=== PATIENT | female | born 1960 | race Caucasian/White ===

== ENCOUNTER 2017-09-21 09:00 | Inpatient (IN) | payer MEDICARE, MEDICAID ==
[~2017-09-21] VITALS: Ht 152.4 cm; Wt 39.0 kg
--- NOTE | 2017-09-21 08:51 | Emergency Room Report ---
History of Present Illness General Source: Family Member, EMS Present Illness HPI Patient's 56-year-old female presented after increased seizure activity. Patient had prior history of traumatic brain injury. She reportedly does not have prior history of seizures. Patient had brief seizure approximately 30 seconds. The patient noted to have no prior seizure medications. She reportedly had been sent in from [facility]. Per EMS, she is currently at her baseline mental status. Allergies: Coded Allergies: No Known Allergies (Unverified , 09/21/17) Patient History Past Medical History: see triage record Reviewed Nursing Documentation: PMH: Agreed, PSxH: Agreed Physical Exam General Appearance: no apparent distress, Chronically Ill Eyes: bilateral eye PERRL ENT: uvula midline Neck: limited range of motion Respiratory: lungs clear, normal breath sounds Cardiovascular #1: no edema Gastrointestinal: non tender, soft Musculoskeletal: decreased range of motion, other Neurologic: other - incomprehensible sounds, moves all extremities, responsive to verbal stimuli Psychiatric: anxious Skin: normal color Medical Decision Making Diagnostic Impression: Primary Impression: Epileptic seizure, generalized ER Course Patient presented for a seizure. Differential diagnosis included stroke, cysticercosis, electrolyte abnormality, mass lesion, or cranial hemorrhage.Because of complexity of patient's case laboratory testing and imaging studies were ordered.The patient was loaded with IV Keppra A CT imaging of the head read by radiology showed paraventricular deep white matter changes as well as a left maxillary sinus polyps. There was ventricular megaly which was likely related to volume loss however this may represent hydrocephalus. Patient was discussed with Dr. Michel for inpatient management. Per discussion with family member patient is not to be intubated or have CPR. Labs Test 09/21/17 09:00 09/21/17 10:47 White Blood Count 11.3 K/UL (4.8-10.8) Red Blood Count 4.75 M/UL (4.20-5.40) Hemoglobin 14.5 G/DL (12.0-16.0) Hematocrit 45.3 % (37.0-47.0) Mean Corpuscular Volume 95 FL (80-99) Mean Corpuscular Hemoglobin 30.4 PG (27.0-31.0) Mean Corpuscular Hemoglobin Concent 32.0 G/DL (32.0-36.0) Red Cell Distribution Width 12.4 % (11.6-14.8) Platelet Count 378 K/UL (150-450) Mean Platelet Volume 6.2 FL (6.5-10.1) Neutrophils (%) (Auto) 63.6 % (45.0-75.0) Lymphocytes (%) (Auto) 30.2 % (20.0-45.0) Monocytes (%) (Auto) 3.9 % (1.0-10.0) Eosinophils (%) (Auto) 0.9 % (0.0-3.0) Basophils (%) (Auto) 1.3 % (0.0-2.0) Sodium Level 145 MMOL/L (136-145) Potassium Level 4.9 MMOL/L (3.5-5.1) Chloride Level 106 MMOL/L (98-107) Carbon Dioxide Level 27 MMOL/L (21-32) Anion Gap 12 mmol/L (5-15) Blood Urea Nitrogen 17 mg/dL (7-18) Creatinine 1.1 MG/DL (0.55-1.30) Estimat Glomerular Filtration Rate 51.8 mL/min (>60) Glucose Level 177 MG/DL (74-106) Calcium Level 9.6 MG/DL (8.5-10.1) Total Bilirubin 0.4 MG/DL (0.2-1.0) Aspartate Amino Transf (AST/SGOT) 21 U/L (15-37) Alanine Aminotransferase (ALT/SGPT) 28 U/L (12-78) Alkaline Phosphatase 50 U/L (46-116) Total Protein 7.7 G/DL (6.4-8.2) Albumin 4.1 G/DL (3.4-5.0) Globulin 3.6 g/dL Albumin/Globulin Ratio 1.1 (1.0-2.7) Urine Color Pale yellow Urine Appearance Clear Urine pH 5 (4.5-8.0) Urine Specific [place] 1.025 (1.005-1.035) Urine Protein Negative (NEGATIVE) Urine Glucose (UA) 1+ (NEGATIVE) Urine Ketones Negative (NEGATIVE) Urine Occult Blood 3+ (NEGATIVE) Urine Nitrite Negative (NEGATIVE) Urine Bilirubin Negative (NEGATIVE) Urine Urobilinogen Normal MG/DL (0.0-1.0) Urine Leukocyte Esterase Negative (NEGATIVE) Urine RBC 5-10 /HPF (0 - 2) Urine WBC 0-2 /HPF (0 - 2) Urine Squamous Epithelial Cells Few /LPF (NONE/OCC) Urine Amorphous Sediment Few /LPF (NONE) Urine Bacteria Few /HPF (NONE) Status: unchanged Disposition: ADMITTED INPATIENT Condition: David Mendoza Sep 21, 2017 08:50
[2017-09-21 09:00] VITALS: BP 171/93
[2017-09-21 09:30] LABS: BASOPHILS % (AUTO) 1.3 % (0.0-2.0); EOSINOPHILS % (AUTO) 0.9 % (0.0-3.0); HEMATOCRIT 45.3 % (37.0-47.0); HEMOGLOBIN 14.5 G/DL (12.0-16.0); LYMPHOCYTES % (AUTO) 30.2 % (20.0-45.0); MEAN CORPUSCULAR VOLUME 95 FL (80-99); MONOCYTES % (AUTO) 3.9 % (1.0-10.0); NEUTROPHILS % (AUTO) 63.6 % (45.0-75.0); PLATELET COUNT 378 K/UL (150-450); RED BLOOD COUNT 4.75 M/UL (4.20-5.40); RED CELL DISTRIBUTION WIDTH 12.4 % (11.6-14.8); WHITE BLOOD COUNT 11.3 K/UL (4.8-10.8)
[2017-09-21] MEDS ORDERED: LORazepam Inj 2mg/ml 1ml IV ONE (09:30)
[2017-09-21] MEDS ORDERED: MILK OF MA2400 MG/10 ORAL (09:37)
[2017-09-21] MEDS ORDERED: METOPROLOL TAR100 M1 ORAL (09:37)
[2017-09-21] MEDS ORDERED: DONEPEZIL HCL10 M2 ORAL (09:37)
[2017-09-21] MEDS ORDERED: AMBIEN10 M1 ORAL (09:37)
[2017-09-21] MEDS ORDERED: NAMENDA10 MG ORAL (09:37)
[2017-09-21] MEDS ORDERED: COLACE100 MG ORAL (09:37)
[2017-09-21] MEDS ORDERED: ATIVAN1 MG ORAL (09:37)
[2017-09-21] MEDS ORDERED: TRAMADOL HCL50 MG ORAL (09:38)
[2017-09-21] MEDS ORDERED: MULTIVITAMINS1 EAC2 ORAL (09:38)
[2017-09-21 09:40] LABS: ANION GAP 12 mmol/L (5-15); BLOOD UREA NITROGEN 17 mg/dL (7-18); CALCIUM 9.6 MG/DL (8.5-10.1); CARBON DIOXIDE 27 MMOL/L (21-32); CHLORIDE 106 MMOL/L (98-107); CREATININE 1.1 MG/DL (0.55-1.30); POTASSIUM 4.9 MMOL/L (3.5-5.1); SODIUM 145 MMOL/L (136-145)
[2017-09-21] MEDS ORDERED: TYLENOL EXTRA500 MG ORAL (09:40)
[2017-09-21] MEDS ORDERED: ACETAMINOPHEN325 M1 ORAL (09:40)
[2017-09-21 09:50] LABS: ALANINE AMINOTRANSFERASE 28 U/L (12-78); ALBUMIN 4.1 G/DL (3.4-5.0); ALBUMIN/GLOBULIN RATIO 1.1 (1.0-2.7); ALKALINE PHOSPHATASE 50 U/L (46-116); ASPARTATE AMINO TRANSFERASE 21 U/L (15-37); BILIRUBIN,TOTAL 0.4 MG/DL (0.2-1.0)
--- NOTE | 2017-09-21 10:48 | Diagnostic Imaging Report ---
Indications: Altered mental status, seizures Technique: Spiral acquisitions obtained through the brain. Angled axial and coronal 5 x 5 mm slices were reconstructed. Total dose length product 2055.22 mGycm. CTDI vol(s) 70.38,70.38 mGy. Dose reduction achieved using automated exposure control Comparison: None. Findings: There is enlargement of the ventricles and extra-axial CSF spaces, the former somewhat out of proportion to the latter and both out of proportion to patient's age. Minimal periventricular deep white matter low-attenuation, predominantly in the left parietal region. No acute intracranial hemorrhage or edema. No mass effect nor midline shift. Otherwise normal gordon-white differentiation. There are left maxillary sinus polyps versus mucous retention cysts. The mastoids are clear. The calvarium is intact. Surgical clips are seen in the left posterior neck. Impression: Negative for acute intracranial bleed or mass effect Generalized central and cortical cerebral volume loss, out of proportion to patient's age. Correlate with clinical history. Note that the ventriculomegaly is somewhat disproportionate to the degree of sulcal dilatation. This is probably due to disproportionate central volume loss, but hydrocephalus is also a possibility Left maxillary sinus polyps versus mucous retention cyst Evidence of prior neck surgery. Paraffiner image suggests the presence of tubing in the lower neck as well. Correlate with surgical history Consider contrast MRI for more sensitive evaluation of reported clinical history of new onset seizures The CT scanner at [facility] is accredited by the [employer] and the scans are performed using protocols designed to limit radiation exposure to as low as reasonably achievable to attain images of sufficient resolution adequate for diagnostic evaluation.
[2017-09-21 10:59] LABS: APPEARANCE,URINE CLEAR; BILIRUBIN, URINE NEGATIVE (NEGATIVE); COLOR,URINE PALE YELLOW; GLUCOSE, URINE (UA) 1+ (NEGATIVE); KETONES,URINE NEGATIVE (NEGATIVE); LEUKOCYTE ESTERASE ,URINE NEGATIVE (NEGATIVE); NITRITE,URINE NEGATIVE (NEGATIVE); PH,URINE 5 (4.5-8.0); PROTEIN,URINE NEGATIVE (NEGATIVE); UROBILINOGEN,URINE NORMAL MG/DL (0.0-1.0)
[2017-09-21 11:00] VITALS: BP 98/58
[2017-09-21 13:00] VITALS: BP 100/69
[2017-09-21 15:00] VITALS: BP 146/71
[2017-09-21 16:00] VITALS: BP 129/77
--- NOTE | 2017-09-21 16:31 | History & Physical ---
History and Physical History & Physicial 56 year old female with baseline confusion presents with new onset seizure and tachycardia. Patient noted to be more altered than baseline. Patient now admitted for admission and evaluation. Patient would like DNR per d/w ER MD. Patient without trauma or falls. no fevers or chills noted. Patient without any prodrome. events acute in nature PMH dementia hypertension MEDS/ALLERGIES noted PHYSICAL WDWN NAD clear breath sounds bilaterally without rhonchi or wheeze [id number] without MRG NABS nontender no HSM no CCE nonfocal confused Laboratory Tests Test 09/21/17 09:00 09/21/17 10:47 White Blood Count 11.3 K/UL (4.8-10.8) H Red Blood Count 4.75 M/UL (4.20-5.40) Hemoglobin 14.5 G/DL (12.0-16.0) Hematocrit 45.3 % (37.0-47.0) Mean Corpuscular Volume 95 FL (80-99) Mean Corpuscular Hemoglobin 30.4 PG (27.0-31.0) Mean Corpuscular Hemoglobin Concent 32.0 G/DL (32.0-36.0) Red Cell Distribution Width 12.4 % (11.6-14.8) Platelet Count 378 K/UL (150-450) Mean Platelet Volume 6.2 FL (6.5-10.1) L Neutrophils (%) (Auto) 63.6 % (45.0-75.0) Lymphocytes (%) (Auto) 30.2 % (20.0-45.0) Monocytes (%) (Auto) 3.9 % (1.0-10.0) Eosinophils (%) (Auto) 0.9 % (0.0-3.0) Basophils (%) (Auto) 1.3 % (0.0-2.0) Sodium Level 145 MMOL/L (136-145) Potassium Level 4.9 MMOL/L (3.5-5.1) Chloride Level 106 MMOL/L (98-107) Carbon Dioxide Level 27 MMOL/L (21-32) Anion Gap 12 mmol/L (5-15) Blood Urea Nitrogen 17 mg/dL (7-18) Creatinine 1.1 MG/DL (0.55-1.30) Estimat Glomerular Filtration Rate 51.8 mL/min (>60) Glucose Level 177 MG/DL (74-106) H Calcium Level 9.6 MG/DL (8.5-10.1) Total Bilirubin 0.4 MG/DL (0.2-1.0) Aspartate Amino Transf (AST/SGOT) 21 U/L (15-37) Alanine Aminotransferase (ALT/SGPT) 28 U/L (12-78) Alkaline Phosphatase 50 U/L (46-116) Total Protein 7.7 G/DL (6.4-8.2) Albumin 4.1 G/DL (3.4-5.0) Globulin 3.6 g/dL Albumin/Globulin Ratio 1.1 (1.0-2.7) Urine Color Pale yellow Urine Appearance Clear Urine pH 5 (4.5-8.0) Urine Specific [place] 1.025 (1.005-1.035) Urine Protein Negative (NEGATIVE) Urine Glucose (UA) 1+ (NEGATIVE) H Urine Ketones Negative (NEGATIVE) Urine Occult Blood 3+ (NEGATIVE) H Urine Nitrite Negative (NEGATIVE) Urine Bilirubin Negative (NEGATIVE) Urine Urobilinogen Normal MG/DL (0.0-1.0) Urine Leukocyte Esterase Negative (NEGATIVE) Urine RBC 5-10 /HPF (0 - 2) H Urine WBC 0-2 /HPF (0 - 2) Urine Squamous Epithelial Cells Few /LPF (NONE/OCC) Urine Amorphous Sediment Few /LPF (NONE) H Urine Bacteria Few /HPF (NONE) IMPRESSION seizure, new onset acute on chronic encephalopathy hypertension mild sinus tachycardia PLAN start [facility] MRI EEG neuro evaluation resume sNF meds monitor clinically and dc when stable NANCY ESPANA Sep 21, 2017 16:31
[2017-09-21] MEDS ORDERED: LORazepam 1mg tab ORAL PRN (17:00)
[2017-09-21] MEDS ORDERED: Zolpidem 5mg tab ORAL PRN (17:00)
[2017-09-21] MEDS ORDERED: LORazepam Inj 2mg/ml 1ml IVP PRN (17:00)
[2017-09-21] MEDS ORDERED: traMADol 50mg tab ORAL PRN (17:00)
[2017-09-21] MEDS ORDERED: Milk of Magnesia 30ml Ud ORAL PRN (17:00)
--- NOTE | 2017-09-21 18:06 | Neurology Progress Note ---
Objective Physical Exam Last Vital Signs Date Time Temp Pulse Resp B/P (MAP) Pulse Ox O2 Delivery O2 Flow Rate FiO2 09/21/17 15:00 69 13 146/71 100 Room Air 100 09/21/17 09:00 97.1 Laboratory Tests Test 09/21/17 09:00 09/21/17 10:47 White Blood Count 11.3 K/UL (4.8-10.8) H Red Blood Count 4.75 M/UL (4.20-5.40) Hemoglobin 14.5 G/DL (12.0-16.0) Hematocrit 45.3 % (37.0-47.0) Mean Corpuscular Volume 95 FL (80-99) Mean Corpuscular Hemoglobin 30.4 PG (27.0-31.0) Mean Corpuscular Hemoglobin Concent 32.0 G/DL (32.0-36.0) Red Cell Distribution Width 12.4 % (11.6-14.8) Platelet Count 378 K/UL (150-450) Mean Platelet Volume 6.2 FL (6.5-10.1) L Neutrophils (%) (Auto) 63.6 % (45.0-75.0) Lymphocytes (%) (Auto) 30.2 % (20.0-45.0) Monocytes (%) (Auto) 3.9 % (1.0-10.0) Eosinophils (%) (Auto) 0.9 % (0.0-3.0) Basophils (%) (Auto) 1.3 % (0.0-2.0) Sodium Level 145 MMOL/L (136-145) Potassium Level 4.9 MMOL/L (3.5-5.1) Chloride Level 106 MMOL/L (98-107) Carbon Dioxide Level 27 MMOL/L (21-32) Anion Gap 12 mmol/L (5-15) Blood Urea Nitrogen 17 mg/dL (7-18) Creatinine 1.1 MG/DL (0.55-1.30) Estimat Glomerular Filtration Rate 51.8 mL/min (>60) Glucose Level 177 MG/DL (74-106) H Calcium Level 9.6 MG/DL (8.5-10.1) Total Bilirubin 0.4 MG/DL (0.2-1.0) Aspartate Amino Transf (AST/SGOT) 21 U/L (15-37) Alanine Aminotransferase (ALT/SGPT) 28 U/L (12-78) Alkaline Phosphatase 50 U/L (46-116) Total Protein 7.7 G/DL (6.4-8.2) Albumin 4.1 G/DL (3.4-5.0) Globulin 3.6 g/dL Albumin/Globulin Ratio 1.1 (1.0-2.7) Urine Color Pale yellow Urine Appearance Clear Urine pH 5 (4.5-8.0) Urine Specific [place] 1.025 (1.005-1.035) Urine Protein Negative (NEGATIVE) Urine Glucose (UA) 1+ (NEGATIVE) H Urine Ketones Negative (NEGATIVE) Urine Occult Blood 3+ (NEGATIVE) H Urine Nitrite Negative (NEGATIVE) Urine Bilirubin Negative (NEGATIVE) Urine Urobilinogen Normal MG/DL (0.0-1.0) Urine Leukocyte Esterase Negative (NEGATIVE) Urine RBC 5-10 /HPF (0 - 2) H Urine WBC 0-2 /HPF (0 - 2) Urine Squamous Epithelial Cells Few /LPF (NONE/OCC) Urine Amorphous Sediment Few /LPF (NONE) H Urine Bacteria Few /HPF (NONE) Impression/Recommendations Problems: (1) Alzheimer's dementia with behavioral disturbance (2) Epileptic seizure, generalized Status: unchanged Recommendations #[id number] JENNY NAVARRETE Sep 21, 2017 18:06
[2017-09-21 20:00] VITALS: BP 156/76
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
[2017-09-21] MEDS ORDERED: Donepezil 10mg tab ORAL SCH (21:00)
[2017-09-21] MEDS: Heparin 5000 units/ml inj SUBQ SCH (21:09)
[2017-09-22] VITALS: BP 126/80
[2017-09-22 04:00] VITALS: BP 155/76
[2017-09-22 07:52] VITALS: BP 117/72
[2017-09-22 08:36] LABS: BASOPHILS % (AUTO) 1.1 % (0.0-2.0); EOSINOPHILS % (AUTO) 0.8 % (0.0-3.0); HEMATOCRIT 37.4 % (37.0-47.0); HEMOGLOBIN 12.3 G/DL (12.0-16.0); LYMPHOCYTES % (AUTO) 21.2 % (20.0-45.0); MEAN CORPUSCULAR VOLUME 95 FL (80-99); MONOCYTES % (AUTO) 4.9 % (1.0-10.0); PLATELET COUNT 262 K/UL (150-450); RED BLOOD COUNT 3.93 M/UL (4.20-5.40); RED CELL DISTRIBUTION WIDTH 12.2 % (11.6-14.8); WHITE BLOOD COUNT 9.6 K/UL (4.8-10.8)
[2017-09-22] MEDS: Docusate 100mg cap ORAL SCH (08:53)
--- NOTE | 2017-09-22 08:54 | General Progress Note ---
Assessment/Plan Assessment/Plan IMPRESSION seizure, new onset acute on chronic encephalopathy hypertension mild sinus tachycardia, improved PLAN [facility]ney and Jojo neuro evaluation- resume sNF meds monitor clinically and dc when stable dc to snf today impression, plan, and exam edited and reviewed in detail care discussed with RN Subjective Allergies: Coded Allergies: No Known Allergies (Unverified , 09/21/17) Subjective care noted and reviewed stable overnight Objective Last 24 Hour Vital Signs Date Time Temp Pulse Resp B/P (MAP) Pulse Ox O2 Delivery O2 Flow Rate FiO2 09/22/17 07:52 98.1 70 18 117/72 98 Room Air 09/22/17 04:00 52 09/22/17 04:00 97.3 59 20 155/76 100 Room Air 09/22/17 00:00 53 09/22/17 00:00 97.7 60 20 126/80 97 Room Air 09/21/17 21:06 74 156/76 09/21/17 20:00 97.0 74 20 156/76 94 Room Air 09/21/17 20:00 61 09/21/17 16:00 59 09/21/17 16:00 97.7 67 18 129/77 100 Room Air 09/21/17 15:00 69 13 146/71 100 Room Air 100 09/21/17 13:00 62 14 100/69 100 Room Air 100 09/21/17 11:00 70 18 98/58 100 Room Air 100 09/21/17 09:00 123 20 Room Air 100 09/21/17 09:00 97.1 123 20 171/93 100 Room Air 100 Intake and Output 09/21/17 09/22/17 18:59 06:59 Intake Total 1000 ml 1213 ml Balance 1000 ml 1213 ml Intake Oral 50 ml IV Total 1000 ml 1163 ml # Voids 1 1 # Bowel Movements 1 Laboratory Tests 09/21/17 09:00: White Blood Count 11.3H, Red Blood Count 4.75, Hemoglobin 14.5, Hematocrit 45.3 , Mean Corpuscular Volume 95, Mean Corpuscular Hemoglobin 30.4, Mean Corpuscular Hemoglobin Concent 32.0, Red Cell Distribution Width 12.4, Platelet Count 378, Mean Platelet Volume 6.2L, Neutrophils (%) (Auto) 63.6, Lymphocytes ( %) (Auto) 30.2, Monocytes (%) (Auto) 3.9, Eosinophils (%) (Auto) 0.9, Basophils (%) (Auto) 1.3, Sodium Level 145, Potassium Level 4.9, Chloride Level 106, Carbon Dioxide Level 27, Anion Gap 12, Blood Urea Nitrogen 17, Creatinine 1.1, Estimat Glomerular Filtration Rate 51.8, Glucose Level 177H, Calcium Level 9.6, Total Bilirubin 0.4, Aspartate Amino Transf (AST/SGOT) 21, Alanine Aminotransferase (ALT/SGPT) 28, Alkaline Phosphatase 50, Total Protein 7.7, Albumin 4.1, Globulin 3.6, Albumin/Globulin Ratio 1.1 09/21/17 10:47: Urine Color Pale yellow, Urine Appearance Clear, Urine pH 5, Urine Specific [place] 1.025, Urine Protein Negative, Urine Glucose (UA) 1+H, Urine Ketones Negative, Urine Occult Blood 3+H, Urine Nitrite Negative, Urine Bilirubin Negative, Urine Urobilinogen Normal, Urine Leukocyte Esterase Negative, Urine RBC 5-10H, Urine WBC 0-2, Urine Squamous Epithelial Cells Few, Urine Amorphous Sediment FewH, Urine Bacteria Few 09/22/17 07:20: White Blood Count 9.6, Red Blood Count 3.93L, Hemoglobin 12.3, Hematocrit 37.4, Mean Corpuscular Volume 95, Mean Corpuscular Hemoglobin 31.3H, Mean Corpuscular Hemoglobin Concent 32.9, Red Cell Distribution Width 12.2, Platelet Count 262, Mean Platelet Volume 7.5, Neutrophils (%) (Auto) 72.0, Lymphocytes (%) (Auto) 21.2, Monocytes (%) (Auto) 4.9, Eosinophils (%) (Auto) 0.8, Basophils (%) (Auto ) 1.1, Sodium Level [Pending], Potassium Level [Pending], Chloride Level [ Pending], Carbon Dioxide Level [Pending], Blood Urea Nitrogen [Pending], Creatinine [Pending], Estimat Glomerular Filtration Rate [Pending], Glucose Level [Pending], Calcium Level [Pending] Height (Feet): 5 Height (Inches): 7.00 Weight (Pounds): 86 Objective WDWN NAD clear breath sounds bilaterally without rhonchi or wheeze [id number] without MRG NABS nontender no HSM no CCE nonfocal contracted NANCY ESPANA Sep 22, 2017 08:54
[2017-09-22] MEDS ORDERED: Memantine 10mg tab ORAL SCH (09:00)
[2017-09-22] MEDS: Heparin 5000 units/ml inj SUBQ SCH ×2 (09:00→20:54)
[2017-09-22 09:40] LABS: ANION GAP 8 mmol/L (5-15); BLOOD UREA NITROGEN 13 mg/dL (7-18); CALCIUM 8.6 MG/DL (8.5-10.1); CARBON DIOXIDE 24 MMOL/L (21-32); CHLORIDE 110 MMOL/L (98-107); CREATININE 0.7 MG/DL (0.55-1.30); POTASSIUM 4.1 MMOL/L (3.5-5.1); SODIUM 142 MMOL/L (136-145)
[2017-09-22 11:46] VITALS: BP 132/73
--- NOTE | 2017-09-22 12:37 | Neurology Progress Note ---
Interim History Interim History ROS Limited/Unobtainable: Yes Complaints: mute Events: fed by family Objective Physical Exam Last Vital Signs Date Time Temp Pulse Resp B/P (MAP) Pulse Ox O2 Delivery O2 Flow Rate FiO2 09/22/17 11:46 98.1 60 18 132/73 99 Room Air 09/21/17 15:00 100 Laboratory Tests Test 09/22/17 07:20 White Blood Count 9.6 K/UL (4.8-10.8) Red Blood Count 3.93 M/UL (4.20-5.40) L Hemoglobin 12.3 G/DL (12.0-16.0) Hematocrit 37.4 % (37.0-47.0) Mean Corpuscular Volume 95 FL (80-99) Mean Corpuscular Hemoglobin 31.3 PG (27.0-31.0) H Mean Corpuscular Hemoglobin Concent 32.9 G/DL (32.0-36.0) Red Cell Distribution Width 12.2 % (11.6-14.8) Platelet Count 262 K/UL (150-450) Mean Platelet Volume 7.5 FL (6.5-10.1) Neutrophils (%) (Auto) 72.0 % (45.0-75.0) Lymphocytes (%) (Auto) 21.2 % (20.0-45.0) Monocytes (%) (Auto) 4.9 % (1.0-10.0) Eosinophils (%) (Auto) 0.8 % (0.0-3.0) Basophils (%) (Auto) 1.1 % (0.0-2.0) Sodium Level 142 MMOL/L (136-145) Potassium Level 4.1 MMOL/L (3.5-5.1) Chloride Level 110 MMOL/L (98-107) H Carbon Dioxide Level 24 MMOL/L (21-32) Anion Gap 8 mmol/L (5-15) Blood Urea Nitrogen 13 mg/dL (7-18) Creatinine 0.7 MG/DL (0.55-1.30) Estimat Glomerular Filtration Rate > 60 mL/min (>60) Glucose Level 102 MG/DL (74-106) Calcium Level 8.6 MG/DL (8.5-10.1) General: well developed, no acute distress, other - cachectic Head: normocophalic, atraumatic Neck: other - rigid Neurologic Exam Mental Status: other - eyes closed , obtunded Speech: other - mute Language: other - poor comprehension Cranial Nerve II: other Cranial Nerves III, IV, : pupils Cranial Nerve V: masseters function normal Cranial Nerve VIII: no nystagmus Cranial Nerve IX: other - gag ok Cranial Nerve XI: trapezii function normal Cranial Nerve XII: no tongue atrophy/fasciculations Motor System: other - diffuse rigidity Sensory: normal position sense, other Deep Tendon Reflexes: 0 bicep (L), 0 bicep (R), 0 tricep (L), 0 tricep (R), 0 brachioradialis (L), 0 brachioradialis (R), 0 knee (L), 0 knee (R), 0 ankle (L) , 0 ankle (R) Reflexes: mute plantar (L), mute plantar (R) Impression/Recommendations Problems: (1) Alzheimer's dementia with behavioral disturbance (2) Epileptic seizure, generalized Status: unchanged Recommendations #[id number] depakote 250mg bid may titrate JENNY NAVARRETE Sep 22, 2017 12:37
[2017-09-22 16:00] VITALS: BP 133/84
[2017-09-22 20:00] VITALS: BP 136/79
[2017-09-23] VITALS: BP 152/76
[2017-09-23 04:00] VITALS: BP 143/92
[2017-09-23 08:00] VITALS: BP 144/71
[2017-09-23] MEDS: Docusate 100mg cap ORAL SCH (08:55)
[2017-09-23] MEDS: Heparin 5000 units/ml inj SUBQ SCH (08:58)
[2017-09-23 12:15] VITALS: BP 143/75
--- NOTE | 2017-09-23 12:20 | General Progress Note ---
Assessment/Plan Assessment/Plan IMPRESSION seizure, new onset acute on chronic encephalopathy hypertension mild sinus tachycardia, improved PLAN Depakote and Kefloydra neuro evaluation- resume sNF meds monitor clinically and dc when stable dc to snf today impression, plan, and exam edited and reviewed in detail care discussed with RN Subjective Allergies: Coded Allergies: No Known Allergies (Unverified , 09/21/17) Subjective care noted and reviewed stable overnight alert Objective Last 24 Hour Vital Signs Date Time Temp Pulse Resp B/P (MAP) Pulse Ox O2 Delivery O2 Flow Rate FiO2 09/23/17 09:00 53 143/92 09/23/17 08:00 97.7 55 18 144/71 97 Room Air 09/23/17 08:00 55 09/23/17 04:00 97.9 53 20 143/92 97 Room Air 09/23/17 04:00 53 09/23/17 00:00 97.7 53 20 152/76 100 Room Air 09/23/17 00:00 48 09/22/17 20:54 64 136/79 09/22/17 20:00 98.0 65 20 136/79 93 Room Air 09/22/17 20:00 64 09/22/17 16:00 97.7 65 18 133/84 93 Room Air 09/22/17 16:00 61 Intake and Output 09/22/17 09/23/17 19:00 07:00 Intake Total 1360 ml 1170 ml Balance 1360 ml 1170 ml Intake Oral 360 ml IV Total 1000 ml 1170 ml # Voids 3 # Bowel Movements 1 Height (Feet): 5 Height (Inches): 7.00 Weight (Pounds): 86 Objective WDWN NAD clear breath sounds bilaterally without rhonchi or wheeze [id number] without MRG NABS nontender no HSM no CCE nonfocal contracted NANCY ESPANA Sep 23, 2017 12:20
[2017-09-23] MEDS ORDERED: DEPAKOTE125 MG PO (13:53)
[2017-09-23] MEDS ORDERED: LOPRESSOR25 M1 ORAL (13:54)
--- NOTE | 2017-09-23 15:45 | Electroencephalogram ---
DATE OF PROCEDURE: 09/22/2017 REFERRING PHYSICIAN: Lenin Michel M.D. READING PHYSICIAN: Soham Gann M.D. PROCEDURE PERFORMED: Electroencephalography. HISTORY: This is a 56-year-old female with a history of progressive neurodegenerative disease presenting with generalized seizure. EEG was requested to assess possible ongoing seizure activities. Currently, the patient placed on Depakote. EEG was done using 18 electrodes placed on scalp to scalp, scalp to ear montages according to 10[employer] System. During recording, the patient described as being obtunded, poorly cooperative. Most of the recording, background consisted of a poorly organized, predominantly low voltage mixture of 3 to 5 cycles per second theta activities bilaterally with appearance of intermittent bifrontal/central polymorphic delta wave transients, short runs of generalized 2 to 3 per second delta activities noted. There were no clinical signs of involuntary movement. There were no paroxysmal electrographic activities. No spike and wave activity. No significant asymmetry from [id number]. IMPRESSION: Markedly abnormal EEG, compatible with severe encephalopathy. COMMENT: Above abnormality indicating the global cerebral dysfunction, absence of paroxysmal event does not rule out seizure disorder. Soham Gann M.D. DR: JEN JOB#: [id number] CC:
--- NOTE | 2017-09-26 08:28 | Discharge Summary ---
Discharge Summary Hospital Course Date of Admission Sep 21, 2017 at 10:00 Date of Discharge Sep 23, 2017 at 15:40 Admitting Diagnosis NEW ONSET SEIZURE HPI Cher Noel is a 56 year old female who was admitted on Sep 21, 2017 at 10:00 for New Onset Seizure Hospital Course dc summary #[id number] Discharge Medications Continued Medications: Acetaminophen* (Tylenol Extra Strength*) 500 Mg Tablet 1000 MG ORAL Q6H PRN for Mild Pain/Temp > 100.5, TAB 0 Refills Acetaminophen* (Acetaminophen 325MG Tablet*) 325 Mg Tablet 650 MG ORAL Q4H, TAB Divalproex Sodium (Depakote) 125 Mg Tablet.dr 250 MG PO EVERY 12 HOURS, TAB Docusate Sodium* (Colace*) 100 Mg Capsule 100 MG ORAL DAILY, CAP Donepezil Hcl* (Donepezil Hcl*) 10 Mg Tab.rapdis 10 MG ORAL DAILY, TAB Lorazepam* (Ativan*) 1 Mg Tablet 1 MG ORAL EVERY 4 HOURS PRN for Agitation, TAB Magnesium Hydroxide* (Milk Of Magnesia*) 2,400 Mg/10 Ml Oral.susp 20 ML ORAL DAILY PRN for Constipation, ML Memantine Hcl* (Namenda*) 10 Mg Tablet 10 MG ORAL DAILY, TAB Metoprolol Tartrate (Metoprolol Tartrate) 25 Mg Tablet 50 MG ORAL EVERY 12 HOURS, TAB Multivitamins* (Multivitamins*) 1 Each Tablet 1 TAB ORAL DAILY, TAB 0 Refills Tramadol Hcl* (Ultram*) 50 Mg Tablet 50 MG ORAL Q6H PRN for For Pain, #30 TAB 0 Refills Zolpidem Tartrate* (Ambien*) 10 Mg Tablet 10 MG ORAL HS PRN for Insomnia, TAB Discontinued Medications: Metoprolol Tartrate* (Metoprolol Tartrate*) 100 Mg Tablet 100 MG ORAL EVERY 12 HOURS, TAB Discharge Condition Upon Discharge: stable Discharge Disposition Patient was discharged to SNF/Subacute Facility(03) Discharge Diagnoses: Discharge Instructions Discharge Instructions Special Instructions I have been assigned to complete a D/C Summary on this account. I was not involved in the patient management Juliette Rosenthal NP ([facility]) Sep 26, 2017 08:28
--- NOTE | 2017-09-26 22:45 | Discharge Summary 2 SIG ---
DATE OF ADMISSION: 09/21/2017 DATE OF DISCHARGE: 09/23/2017 REASON FOR ADMISSION: 56-year-old female with past medical history of hypertension, severe head trauma in the past, progressive neurodegenerative disease and dementia, was noted in the custodial facility to have a new onset of generalized clonic-tonic seizure episode. Paramedics were called to the scene, and the patient was transferred to the hospital for further management. Upon evaluation, the patient was lethargic and postictal. CT of the head revealed no acute intracranial bleeding or mass effect. It demonstrated generalized central and cortical cerebral volume loss, out of proportion to patient's age. Heart rate initially was in 120. The patient was admitted with diagnosis of new onset of seizure, acute on chronic encephalopathy, hypertension, sinus tachycardia. HOSPITAL COURSE: The patient was admitted to telemetry floor. Neurology evaluation was requested. SNF medications were resumed. Blood pressure and heart rate were controlled with beta-juan j. Neurologist seen and evaluated the patient . Patient initially was started on Keppra. EEG was markedly abnormal, consistent with severe encephalopathy. Neurologist changed anticonvulsant to Depakote. LFTs were closely monitored. Neurologist recommended to check levels and LFTs periodically at the facility. DVT prophylaxis provided. Namenda and Aricept resumed. Gentle IV fluids were provided. The patient was observed for any paroxysmal events. No further seizure activity while in the hospital. The patient was stable for discharge back to custodial facility. FINAL DIAGNOSES: 1. Generalized epileptic seizure, new onset. 2. Acute on chronic encephalopathy. 3. Alzheimer dementia with behavioral disturbances. 4. History of severe head trauma. 5. Hypertension. 6. Sinus tachycardia, resolved. DISCHARGE MEDICATIONS: See medication reconciliation list. DISCHARGE INSTRUCTIONS: The patient was discharged to custodial facility. FOLLOWUP: Follow up with medical doctor at the facility. Lenin Michel M.D. I have been assigned to dictate discharge summary on this account and I was not involved in the patient's management. Juliette Rosenthal ([facility] N.PNurys DR: AMBROSE JOB#: [id number] CC: HERBERT
--- NOTE | 2017-10-02 16:59 | Cardiology Report ---
APPROVED REPORT EKG Measurement Heart [id number] Normal sinus rhythm Normal ECG
== END 2017-09-23 15:40 | DRG 100 ==
LOC: EDBD 09:00 → EMR 09:51 → 2E 10:00 → EDBEDREQ 14:15
DX: G40.409 Other generalized epilepsy and epileptic syndromes, not intractable, without status epilepticus (principal); G93.40 Encephalopathy, unspecified; F02.81 Dementia in other diseases classified elsewhere, unspecified severity, with behavioral disturbance; I10 Essential (primary) hypertension; R00.0 Tachycardia, unspecified; G30.9 Alzheimer's disease, unspecified; Z87.820 Personal history of traumatic brain injury
CPT/HCPCS: 36415; 70450; 80048; 80053; 80299; 81003; 85025; 87081; 93005; 95819; 99284; 99285

== ENCOUNTER 2018-04-21 10:05 | Outpatient (CLI) | payer MEDICARE, MEDICAID ==
[~2018-04-21 10:05] MED LIST: ACETAMINOPHEN325 M1 ORAL; AMBIEN10 M1 ORAL; ATIVAN1 MG ORAL; COLACE100 MG ORAL; DEPAKOTE125 MG PO; DONEPEZIL HCL10 M2 ORAL; LOPRESSOR25 M1 ORAL; METOPROLOL TAR100 M1 ORAL; MILK OF MA2400 MG/10 ORAL; MULTIVITAMINS1 EAC2 ORAL; NAMENDA10 MG ORAL; TRAMADOL HCL50 MG ORAL; TYLENOL EXTRA500 MG ORAL
--- NOTE | 2018-04-21 12:17 | Diagnostic Imaging Report ---
Indications: Bump on right side of forehead Technique: Spiral acquisitions obtained through the brain. Angled axial and coronal 5 x 5 mm slices were reconstructed. Total dose length product 1354.97 mGycm. CTDI vol(s) 70.38 mGy. Dose reduction achieved using automated exposure control Comparison: 09/21/2017 Findings: Again demonstrated is age-related enlargement of the ventricles and extra axial CSF spaces, particularly in the region of the atrium of the left lateral ventricle. No acute intracranial hemorrhage or edema, mass effect, nor midline shift. There is mild periventricular deep white matter low-attenuation. No acute intracranial hemorrhage or edema, mass effect, nor midline shift. No significant bony protuberance demonstrated. A small soft tissue calcification is seen in the frontal midline, unchanged. No significant soft tissue protuberance. The included sinuses are clear. Previously demonstrated left maxillary polyp or mucous retention cyst is not visualized currently, but may have been excluded from the current imaging volume The orbits are unremarkable. The mastoids are clear. Impression: Cerebral volume loss, disproportionate to patient's age, also previously reported and unchanged Negative for acute intracranial bleed or mass effect No abnormality to correspond with stated clinical history of right-sided forehead bump is identified, except for possibly a small midline calcification which is unchanged The CT scanner at [facility] is accredited by the [employer] and the scans are performed using protocols designed to limit radiation exposure to as low as reasonably achievable to attain images of sufficient resolution adequate for diagnostic evaluation.
== END 2018-04-21 12:05 | disposition home or self-care (01) ==
LOC: CAT 10:05
DX: R22.0 Localized swelling, mass and lump, head (principal)
CPT/HCPCS: 70450